=== PATIENT | female | born 1970 | race Caucasian/White ===

== ENCOUNTER → 2019-02-07 | Outpatient (CLI) | payer BC ==
--- NOTE | 2019-02-07 11:54 | REP ---
BILATERAL MAMMOGRAM WITH 3D TOMOSYNTHESIS BASELINE STUDY: No family history of breast cancer. Tyrer-zick lifetime risk of breast cancer 14.6%. MLO and CC views of both breasts performed with 3D tomosynthesis. Mild scattered fibroglandular tissue is seen symmetrically bilaterally. However, there is a subtle ill-defined nodular density in the inferolateral right breast measuring about 1.3 cm in diameter. Small axillary lymph nodes are seen bilaterally. No clustered microcalcifications are seen. IMPRESSION: Ill-defined nodule inferolaterally right breast 1.3 cm in diameter. Recommend spot compression views and ultrasound to further evaluate. This mammogram was interpreted with the aid of an FDA-approved computer-aided detection system. The patient states he/she had a clinical breast exam in 01/2019. The patient letter being requested is M0.
== END ==
LOC: M WHC 09:16
PROVIDERS: ATTEND Nurse Practitioner Women's Health
DX: Z12.31 Encounter for screening mammogram for malignant neoplasm of breast (principal); N63.0 Unspecified lump in unspecified breast

== ENCOUNTER → 2019-02-07 | Outpatient (REF) | payer BC ==
[2019-02-09 14:09] LABS: HPV HYBRID CAPTURE II Negative (Negative)
== END ==
LOC: M SFHCWAGY 09:29
PROVIDERS: ATTEND Nurse Practitioner Women's Health
DX: Z12.4 Encounter for screening for malignant neoplasm of cervix (principal)
CPT/HCPCS: 87624; G0123

== ENCOUNTER → 2019-02-14 | Outpatient (CLI) | payer BC ==
--- NOTE | 2019-02-14 18:45 | REP ---
DIAGNOSTIC MAMMOGRAM RIGHT BREAST WITH RIGHT BREAST ULTRASOUND: Multiple spot compression views of the right breast are performed and correlated with the recent baseline mammogram of 02/07/2019. These confirm the presence of an ill-defined nodular density inferolaterally in the right breast measuring slightly greater than 1 cm in diameter. Margins are ill-defined. There are no associated microcalcifications. Real-time sonographic evaluation of the inferolateral right breast demonstrates no cystic or solid nodule. IMPRESSION: Persistent ill-defined nodular density inferolateral right breast measuring about 1.3 cm in diameter. No sonographic correlate is visualized. There are no prior studies for comparison. I would recommend sterotactic biopsy of this nodule. ACR 4 suspicious. BIRADS 4: BI-RADS/ACR category 4 mammogram. Suspicious Abnormality - biopsy should be considered. The patient letter being requested is M4. Electronically Signed by Jack Enriquez MD 02/17/2019 06:34 P
== END ==
LOC: M RAD 14:12
PROVIDERS: ATTEND Nurse Practitioner Women's Health
DX: R92.8 Other abnormal and inconclusive findings on diagnostic imaging of breast (principal)

== ENCOUNTER → 2024-04-16 | Outpatient (CLI) | payer OTHER | LOC: M PLARAD 14:02 | PROVIDERS: ATTEND Internal Medicine Critical Care Medicine | DX: R91.8 Other nonspecific abnormal finding of lung field (principal) | CPT/HCPCS: 78815; A9552 ==